=== PATIENT | female | born 1990 ===

== ENCOUNTER 2017-12-27 03:15 | Inpatient (IN) | payer MEDICAID ==
[2017-12-27] MEDS ORDERED: Oxytocin/Lactated Ringers 10 UNIT/1,000 ML BAG IV ONE (03:50)
[2017-12-27] MEDS ORDERED: Lidocaine 1% 50 ML MDV ONE (04:02)
[2017-12-27] MEDS ORDERED: Sodium Chloride 0.9% 10 ML Syringe FLUSH PRN (04:17)
[2017-12-27] MEDS ORDERED: Lidocaine 1% 50 ML MDV INJECT ONE (04:17)
[2017-12-27] MEDS ORDERED: Oxytocin/Lactated Ringers 10 UNIT/1,000 ML BAG IV SCH (04:30)
[2017-12-27] MEDS ORDERED: Lactated Ringers 1,000 ML IV SCH (04:30)
[2017-12-27] MEDS ORDERED: Witch Hazel Medicated Pads 100/Jar TOP PRN (05:39)
[2017-12-27] MEDS ORDERED: Benzocaine/Menthol 20%-0.5% Spray 56 GM Canister TOP PRN (05:39)
[2017-12-27] MEDS ORDERED: Ibuprofen 600 MG Tab PO PRN (05:39)
[2017-12-27] MEDS ORDERED: Acetaminophen 325 MG Tab PO PRN (05:39)
--- NOTE | 2017-12-28 07:34 | PCM.LDHP ---
L&D History of Present Illness - General Date of Service: 12/27/17 Admit Problem/Dx: Admission Diagnosis/Problem Admission Diagnosis/Problem care following vaginal delivery Source of Information: Patient - History of Present Illness Introduction:: Called for delivery for this 27 year old female patient at 40+ weeks. Rapid . - Related Data Allergies/Adverse Reactions: Allergies Allergy/AdvReac Type Severity Reaction Status Date / Time No Known Allergies Allergy Verified 12/27/17 04:52 Home Medications: Home Meds Prenat Vit Comb.10/Iron/Fa/Dha [Vitafol-OB + DHA] 1 each PO DAILY 12/18/15 [ History] Acetaminophen [Tylenol] 650 mg PO Q4H PRN #50 tablet 12/20/15 [Rx] Benzocaine/Menthol [Dermoplast Pain Relief [place]] 1 spray TOP ASDIRECTED PRN #1 canister 12/20/15 [Rx] Docusate Sodium [Colace] 100 mg PO BID PRN #50 cap 12/20/15 [Rx] Ibuprofen [IJD: Ibuprofen] 600 mg PO Q4H PRN #50 tablet 12/20/15 [Rx] Simethicone 80 mg PO Q4H PRN #0 tab.chew 12/20/15 [Rx] Witch Sri [Tucks] 1 pad TOP ASDIRECTED PRN #0 pad 12/20/15 [Rx] Past Medical History - Past Health History Medical/Surgical History: Denies 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: , Spontaneous Social & Family History - Family History OBGYN: Reports: - Tobacco Use Smoking Status *Q: Never Smoker - Recreational Drug Use Recreational Drug Use: No H&P Review of Systems - Review of Systems: Review Of Systems: See Below General: Reports: No Symptoms HEENT: Reports: No Symptoms Pulmonary: Reports: No Symptoms Cardiovascular: Reports: No Symptoms Gastrointestinal: Reports: No Symptoms Genitourinary: Reports: No Symptoms Musculoskeletal: Reports: No Symptoms Skin: Reports: No Symptoms Psychiatric: Reports: No Symptoms Neurological: Reports: No Symptoms Hematologic/Lymphatic: Reports: No Symptoms Immunologic: Reports: No Symptoms L&D Exam - Exam Exam: See Below - Vital Signs Vital Signs: Last Vital Signs Temp 36.6 C 12/28/17 03:05 Pulse 67 12/28/17 03:05 Resp 18 12/28/17 03:05 BP 115/80 12/28/17 03:05 Pulse Ox 96 12/28/17 03:05 Weight: 113.398 kg - OB Specific Contraction Intensity: Moderate to Strong - Vincent Score Vincent Score Cervix Position: Midposition Vincent Score Consistency: Soft Vincent Score Effacement: 51-70% Vincent Score Dilation: 1-2 cm Vincent Score Infant's Station: -2 Vincent Score Total: 7 - Exam General: Alert, Oriented HEENT: PERRLA, Conjunctiva Clear, EACs Clear, EOMI, Hearing Intact, Mucosa Moist & [place], Nares Patent, Normal Nasal Septum, Posterior Pharynx Clear, TMs Clear Neck: Supple, Trachea Midline Lungs: Clear to Auscultation, Normal Respiratory Effort Cardiovascular: Regular Rate, Regular Rhythm GI/Abdominal Exam: Normal Bowel Sounds, Soft, Non-Tender, No Organomegaly, No Distention, No Abnormal Bruit, No Mass, Pelvis Stable Genitourinary: Normal external exam, Normal bimanual exam, Normal speculum exam Back Exam: Normal Inspection, Full Range of Motion Extremities: Normal Inspection, Normal Range of Motion, Non-Tender, No Pedal Edema, Normal Capillary Refill Skin: Warm, Dry, Intact Neurological: Cranial Nerves Intact, Reflexes Equal Bilateral Psychiatric: Alert, Normal Affect, Normal Mood Problem List Initiated/Reviewed/Updated: Yes Orders Last 24hrs: Active Orders 24 hr Category Date Time Status Regular Diet [DIET] Diet 12/27/17 Breakfast Active Heat Therapy [OM.PC] PRN Oth 12/28/17 05:39 Ordered Medication Orders Acetaminophen (Tylenol) 650 mg PO Q4H PRN PRN Reason: mild pain or fever Benzocaine/Menthol (Dermoplast Pain Relief [place]) 0 gm TOP ASDIRECTED PRN PRN Reason: Perineal Comfort Measure Last Admin: 12/27/17 05:45 Dose: 1 applic Ibuprofen (Motrin) 600 mg PO Q6H PRN PRN Reason: Mild pain or fever Witch Sri (Tucks) 1 pad TOP ASDIRECTED PRN PRN Reason: Hemorrhoid pain Last Admin: 12/27/17 05:45 Dose: 1 applic Assessment/Plan Comment:: Term delivery. Routine care
[2017-12-28 08:38] VITALS: BP 112/66
--- NOTE | 2017-12-31 04:35 | PCM.DEL ---
L & D Note - General Info Date of Service: 12/28/17 - Delivery Note Labor: Spontaneous Delivery Outcome: Livebirth Delivery Method: Spontaneous Vaginal Delivery-Single Presentation: Vertex Anesthesia Type: None Laceration: None Placenta: Intact, Spontaneous Resuscitation Needed: No Score 1 min: 8 Score 5 min: 9 Second Stage Interventions: Reports: Pushing Effectively Delivery Comments (Free Text/Narrative):: Rapid less than 30 minutes after arrival to hospital. No complications. - General Info Date of Service: 12/28/17 - Review of Systems General: Reports: No Symptoms HEENT: Reports: No Symptoms Pulmonary: Reports: No Symptoms Cardiovascular: Reports: No Symptoms Gastrointestinal: Reports: No Symptoms Genitourinary: Reports: No Symptoms Musculoskeletal: Reports: No Symptoms Skin: Reports: No Symptoms Neurological: Reports: No Symptoms Psychiatric: Reports: No Symptoms - Patient Data Vitals - Most Recent: Last Vital Signs Temp 37.1 C 12/28/17 08:36 Pulse 69 12/28/17 08:36 Resp 16 12/28/17 08:36 BP 112/66 12/28/17 08:36 Pulse Ox 95 12/28/17 08:36 Weight - Most Recent: 113.398 kg Med Orders - Current: Current Medications Discontinued Medications Acetaminophen (Tylenol) 650 mg PO Q4H PRN PRN Reason: mild pain or fever Benzocaine/Menthol (Dermoplast Pain Relief [place]) 0 gm TOP ASDIRECTED PRN PRN Reason: Perineal Comfort Measure Last Admin: 12/27/17 05:45 Dose: 1 applic Oxytocin/Lactated Ringer's (Pitocin In Lr 10 Units/1,000 Ml) Confirm Administered Dose 10 unit in 1,000 mls @ as directed IV .STK-MED ONE Stop: 12/27/17 03:51 Last Admin: 12/27/17 05:13 Dose: Not Given Lactated Ringer's (Ringers, Lactated) 1,000 mls @ 100 mls/hr IV ASDIRECTED SUKHWINDER Oxytocin/Lactated Ringer's (Pitocin In Lr 10 Units/1,000 Ml) 10 unit in 1,000 mls @ 100 mls/hr IV .CONTINUOUS SUKHWINDER Last Admin: 12/27/17 03:57 Dose: 100 mls/hr Ibuprofen (Motrin) 600 mg PO Q6H PRN PRN Reason: Mild pain or fever Lidocaine HCl (Xylocaine 1%) Confirm Administered Dose 50 ml .ROUTE .STK-MED ONE Stop: 12/27/17 04:03 Last Admin: 12/27/17 05:13 Dose: Not Given Lidocaine HCl (Xylocaine 1%) 3 ml INJECT ONETIME ONE Stop: 12/27/17 04:18 Last Admin: 12/27/17 03:58 Dose: 3 ml Sodium Chloride (Saline Flush) 10 ml FLUSH ASDIRECTED PRN PRN Reason: Keep Vein Open Witch Sri (Tucks) 1 pad TOP ASDIRECTED PRN PRN Reason: Hemorrhoid pain Last Admin: 12/27/17 05:45 Dose: 1 applic - Problem List Review Problem List Initiated/Reviewed/Updated: Yes - Plan Plan:: Term delivery. Routine care
--- NOTE | 2017-12-31 04:37 | PCM.DCSUM1 ---
Discharge Summary - Discharge Data Discharge Date: 12/28/17 Discharge Disposition: Home, Self-Care 01 Condition: Good - Patient Summary/Data Hospital Course: Unremarkable course. 12/27/17. Desires discharge today. - Patient Instructions Diet: Usual Diet as Tolerated Activity: No Strenuous Activities Driving: May Drive Today Showering/Bathing: May Shower Wound/Incision Care: Keep Operative Site/Wound Site Clean and Dry, Change Dressing Daily, Do NOT Change Dressing Notify Provider of: Fever, Increased Pain, Swelling and Redness, Drainage, Nausea and/or Vomiting - Discharge Plan Home Medications: Home Meds Prenat Vit Comb.10/Iron/Fa/Dha [Vitafol-OB + DHA] 1 each PO DAILY 12/18/15 [ History] Acetaminophen [Tylenol] 650 mg PO Q4H PRN #50 tablet 12/20/15 [Rx] Benzocaine/Menthol [Dermoplast Pain Relief [place]] 1 spray TOP ASDIRECTED PRN #1 canister 12/20/15 [Rx] Docusate Sodium [Colace] 100 mg PO BID PRN #50 cap 12/20/15 [Rx] Ibuprofen [IJD: Ibuprofen] 600 mg PO Q4H PRN #50 tablet 12/20/15 [Rx] Simethicone 80 mg PO Q4H PRN #0 tab.chew 12/20/15 [Rx] Witch Sri [Tucks] 1 pad TOP ASDIRECTED PRN #0 pad 12/20/15 [Rx] Patient Handouts: Vaginal Delivery, Home Care Instructions for Mom, SIDS Prevention Information, [id number] Referrals: Gabbi Chaney MD [Primary Care Provider] - ([place] in January for check ) - General Info Date of Service: 12/28/17 Functional Status: Reports: Pain Controlled - Review of Systems General: Reports: No Symptoms HEENT: Reports: No Symptoms Pulmonary: Reports: No Symptoms Cardiovascular: Reports: No Symptoms Gastrointestinal: Reports: No Symptoms Genitourinary: Reports: No Symptoms Musculoskeletal: Reports: No Symptoms Skin: Reports: No Symptoms Neurological: Reports: No Symptoms Psychiatric: Reports: No Symptoms - Patient Data Vitals - Most Recent: Last Vital Signs Temp 37.1 C 12/28/17 08:36 Pulse 69 05/13/18 08:36 Resp 16 12/28/17 08:36 BP 112/66 12/28/17 08:36 Pulse Ox 95 12/28/17 08:36 Weight - Most Recent: 113.398 kg Med Orders - Current: Current Medications Discontinued Medications Acetaminophen (Tylenol) 650 mg PO Q4H PRN PRN Reason: mild pain or fever Benzocaine/Menthol (Dermoplast Pain Relief [place]) 0 gm TOP ASDIRECTED PRN PRN Reason: Perineal Comfort Measure Last Admin: 12/27/17 05:45 Dose: 1 applic Oxytocin/Lactated Ringer's (Pitocin In Lr 10 Units/1,000 Ml) Confirm Administered Dose 10 unit in 1,000 mls @ as directed IV .STK-MED ONE Stop: 12/27/17 03:51 Last Admin: 12/27/17 05:13 Dose: Not Given Lactated Ringer's (Ringers, Lactated) 1,000 mls @ 100 mls/hr IV ASDIRECTED SUKHWINDER Oxytocin/Lactated Ringer's (Pitocin In Lr 10 Units/1,000 Ml) 10 unit in 1,000 mls @ 100 mls/hr IV .CONTINUOUS SUKHWINDER Last Admin: 12/27/17 03:57 Dose: 100 mls/hr Ibuprofen (Motrin) 600 mg PO Q6H PRN PRN Reason: Mild pain or fever Lidocaine HCl (Xylocaine 1%) Confirm Administered Dose 50 ml .ROUTE .STK-MED ONE Stop: 12/27/17 04:03 Last Admin: 12/27/17 05:13 Dose: Not Given Lidocaine HCl (Xylocaine 1%) 3 ml INJECT ONETIME ONE Stop: 12/27/17 04:18 Last Admin: 12/27/17 03:58 Dose: 3 ml Sodium Chloride (Saline Flush) 10 ml FLUSH ASDIRECTED PRN PRN Reason: Keep Vein Open Witch Sri (Tucks) 1 pad TOP ASDIRECTED PRN PRN Reason: Hemorrhoid pain Last Admin: 12/27/17 05:45 Dose: 1 applic - Exam General: Reports: Alert, Oriented HEENT: Reports: Pupils Equal, Pupils Reactive, EOMI, Mucous Membr. Moist/[place] Neck: Reports: Supple Lungs: Reports: Clear to Auscultation, Normal Respiratory Effort Cardiovascular: Reports: Regular Rate, Regular Rhythm GI/Abdominal Exam: Normal Bowel Sounds, Soft, Non-Tender, No Organomegaly, No Distention, No Abnormal Bruit, No Mass, Pelvis Stable (Female) Exam: Normal External Exam, Normal Speculum Exam, Normal Bimanual Exam Back Exam: Reports: Normal Inspection, Full Range of Motion Extremities: Normal Inspection, Normal Range of Motion, Non-Tender, No Pedal Edema, Normal Capillary Refill Skin: Reports: Warm, Dry, Intact Wound/Incisions: Reports: Healing Well Neurological: Reports: No New Focal Deficit Psy/Mental Status: Reports: Alert, Normal Affect, Normal Mood
== END 2017-12-28 13:20 | disposition home or self-care (01) | DRG 775 ==
LOC: JD.OBCHECK 03:15 → JD.OB 03:21 → JD.OBCHECK 04:29 → EDLOC 04:29 → JD.OB 04:29
PROVIDERS: ADMIT Obstetrics & Gynecology; ATTEND Obstetrics & Gynecology
PROC: 10E0XZZ Delivery of Products of Conception, External Approach (ICD-10-PCS; principal; 2017-12-28)
PROC: 0HQ9XZZ Repair Perineum Skin, External Approach (ICD-10-PCS; 2017-12-28)
DX: O99.824 Streptococcus B carrier state complicating childbirth (principal); O70.0 First degree perineal laceration during delivery; Z3A.40 40 weeks gestation of pregnancy; Z37.0 Single live birth
CPT/HCPCS: 59300; 59409; J2590

== ENCOUNTER 2023-06-24 02:38 | Emergency (ER) | payer MEDICAID, OTHER, SELFPAY ==
[2023-06-24 03:05] LABS: BASOPHILS PERCENT AUTO 0.3 % (0.0-1.0); EOSINOPHILS ABSOLUTE AUTO 0.1 K/mm3 (0.0-0.4); EOSINOPHILS PERCENT AUTO 1.3 % (0.0-6.0); HEMATOCRIT 39.6 % (37.0-47.0); HEMOGLOBIN 13.7 gm/dl (12.0-16.0); IMMATURE GRAN ABSOLUTE AUTO 0.02 K/mm3 (0.00-0.05); IMMATURE GRAN PERCENT AUTO 0.3 % (0.0-0.4); LYMPHOCYTES ABSOLUTE AUTO 1.7 K/mm3 (1.0-4.8); LYMPHOCYTES PERCENT AUTO 23.1 % (24.0-44.0); MEAN CORPUSCULAR HEMOGLOBIN 32.9 pg (28.0-32.0); MEAN CORPUSCULAR HGB CONC 34.6 g/dl (32.0-36.0); MEAN CORPUSCULAR VOLUME 95.2 fl (83.0-99.0); MEAN PLATELET VOLUME 10.5 fl (9.4-12.3); MONOCYTES ABSOLUTE AUTO 0.6 K/mm3 (0.0-0.8); MONOCYTES PERCENT AUTO 7.3 % (0.0-8.0); NEUTROPHILS ABSOLUTE AUTO 5.1 K/mm3 (1.8-7.7); NEUTROPHILS PERCENT AUTO 67.7 % (41.0-71.0); PLATELET COUNT,PLT 175 K/mm3 (150-400); RED BLOOD CELL COUNT 4.16 M/mm3 (4.10-5.30); WHITE BLOOD CELL COUNT,WBC 7.54 K/mm3 (3.9-11.3)
[2023-06-24 03:23] LABS: PROTHROMBIN TIME 9.6 SECONDS (9.7-12.0)
[2023-06-24 03:29] LABS: INR < 0.93
[2023-06-24 03:48] LABS: A/G RATIO 0.6 (1-2); ALANINE AMINOTRANSFERASE,ALT 20 U/L (14-59); ALBUMIN 2.4 g/dl (3.4-5.0); ALKALINE PHOSPHATASE 135 U/L (46-116); ANION GAP 14.7 (5-15); ASPARTATE AMNIOTRANSFERASE,AST 15 U/L (15-37); BILIRUBIN TOTAL 0.9 mg/dL (0.2-1.0); BLOOD UREA NITROGEN,BUN 6 mg/dL (7-18); BUN/CREATININE RATIO 7.5 (14-18); CALCIUM 8.6 mg/dL (8.5-10.1); CARBON DIOXIDE,CO2 23 mEq/L (21-32); CHLORIDE,CL 101 mEq/L (98-107); CREATININE 0.8 mg/dL (0.55-1.02); ESTIMATED GFR 100 mL/min (>60); GLUCOSE RANDOM 108 mg/dL (70-99); POTASSIUM,K 3.7 mEq/L (3.5-5.1); PROTEIN TOTAL,TP 6.4 g/dl (6.4-8.2); SODIUM,NA 135 mEq/L (136-145); TSH 6.558 uIU/mL (0.358-3.74)
== END 2023-06-24 03:07 | disposition left against medical advice (07) ==
LOC: JD.ED 02:38
DX: Z34.90 Encounter for supervision of normal pregnancy, unspecified, unspecified trimester (principal); Z53.21 Procedure and treatment not carried out due to patient leaving prior to being seen by health care provider; Z79.899 Other long term (current) drug therapy
CPT/HCPCS: 36415; 80053; 84443; 85025; 85610; 99281

== ENCOUNTER 2023-06-24 03:02 | Inpatient (IN) | payer MEDICAID ==
[2023-06-24] MEDS ORDERED: Nalbuphine HCl 10 MG/ 1ML Amp IVPUSH PRN (08:15)
[2023-06-24] MEDS ORDERED: Lidocaine 1% 50 ML MDV INJECT PRN (08:15)
[2023-06-24] MEDS ORDERED: Lactated Ringers 1,000 ML IV SCH (08:15)
[2023-06-24] MEDS ORDERED: Oxytocin/Lactated Ringers 30 UNIT/500 ML BAG IV SCH (08:15)
[2023-06-24] MEDS ORDERED: Sodium Chloride 0.9% 10 ML Syringe FLUSH PRN (08:15)
[2023-06-24] MEDS ORDERED: Ondansetron 4 MG/2 ML SDV IVPUSH PRN (08:15)
[2023-06-24] MEDS ORDERED: Sodium Chloride 0.9% 10 ML Syringe FLUSH SCH (09:00)
[2023-06-24] MEDS ORDERED: Methylergonovine 0.2 MG/1 ML Amp IM STA (15:23)
[2023-06-24] MEDS ORDERED: Acetaminophen 325 MG Tab PO PRN (17:05)
[2023-06-24] MEDS ORDERED: Docusate Sodium 100 MG Cap PO PRN (17:05)
[2023-06-24] MEDS ORDERED: Ibuprofen 600 MG Tab PO PRN (17:05)
[2023-06-24] MEDS ORDERED: Benzocaine/Menthol 20%-0.5% Spray 78 GM Cannister TOP PRN (17:05)
[2023-06-24] MEDS ORDERED: Witch Hazel Medicated Pads 40/Jar TOP PRN (17:05)
[2023-06-25 16:29] VITALS: BP 123/67; PULSE 78
== END 2023-06-25 16:50 | disposition home or self-care (01) | DRG 807 ==
LOC: JD.OBCHECK 03:02 → JD.OB 03:07 → JD.OBCHECK 03:28 → OBSVTOIN 15:08 → JD.OB 15:09
PROVIDERS: ADMIT Obstetrics & Gynecology; ATTEND Obstetrics & Gynecology
PROC: 10E0XZZ Delivery of Products of Conception, External Approach (ICD-10-PCS; principal; 2023-06-24)
PROC: 0HQ9XZZ Repair Perineum Skin, External Approach (ICD-10-PCS; 2023-06-24)
DX: O48.0 Post-term pregnancy (principal); Z37.0 Single live birth; O70.0 First degree perineal laceration during delivery; Z3A.40 40 weeks gestation of pregnancy; Z90.49 Acquired absence of other specified parts of digestive tract; Z98.890 Other specified postprocedural states
CPT/HCPCS: 36415; 59025; 59409; 86592; 86850; 86900; 86901; A9270-GY; J2210; J7120; J7999